=== PATIENT | female | born 2000 | race Caucasian/White ===

== ENCOUNTER 2019-07-30 11:10 | Emergency (ER) | payer BC, SELFPAY ==
[2019-07-30 11:12] VITALS: BP 121/81; PULSE 104; RESP 20; TEMP 37; O2SAT 97; BMI 43.7
[2019-07-30 11:40] VITALS: O2SAT 99
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
[2019-07-30 13:49] VITALS: BP 137/96; PULSE 76; RESP 15; O2SAT 97
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
[2019-07-30 14:05] LABS: Bedside Glucose 105 mg/dL (70-110)
--- NOTE | 2019-07-30 14:15 | ED.RN ---
PT REPORTS NOT FEELING RIGHT AND MOM REPORTS THAT HER SPEECH AND SLURRED AND IN HER LEFT EYE A VEIN BULGES WHEN SHE CLOSES HER EYES. REPORTS PT IS DIABETIC. GLUCOSE CHECKED, RESULT OF 105. PT ALSO STATES ME PIERCING HURTS, AND IT ONLY HURTS WHEN I HIT MY HEAD. MD MADE AWARE. ORDERS ENTERED FOR CT. INFORMED PT OF PIERCING NEEDING REMOVED, PT STATES I HAVE ACRYLIC NAILS SO I CAN'T. FATHER ATTEMPTED TO REMOVE EARRINGS WITH NO SUCCESS. MD ATTEMPTED ALSO WITH NO SUCCESS. CT MADE AWARE. PT ALSO REFUSES TO REMOVE NECKLACE. PT INFORMED THAT RESULTS OF CT MAY NOT BE ACCURATE.
[2019-07-30 14:55] VITALS: PULSE 87; RESP 18; O2SAT 99
== END 2019-07-30 14:55 | disposition home or self-care (01) ==
PROVIDERS: Emergency Provider Emergency Medicine
DX: S29.012A Strain of muscle and tendon of back wall of thorax, initial encounter (principal); S20.219A Contusion of unspecified front wall of thorax, initial encounter; S90.511A Abrasion, right ankle, initial encounter; E11.9 Type 2 diabetes mellitus without complications; Z79.84 Long term (current) use of oral hypoglycemic drugs; V43.52XA Car driver injured in collision with other type car in traffic accident, initial encounter; Y93.I9 Activity, other involving external motion; Y92.410 Unspecified street and highway as the place of occurrence of the external cause; Y99.8 Other external cause status
CPT/HCPCS: 70450; 71046; 71250; 72070; 72125; 72128; 73030; 73610; 73630; 82962; 99285